=== PATIENT | female | born 1965 | race Two or more races ===

== ENCOUNTER 2021-09-02 02:31 | Emergency (ER) | payer SELFPAY ==
[~2021-09-02] VITALS: Ht 162.6 cm; Wt 57.8 kg
[2021-09-02] MEDS ORDERED: ONDANSETRON ODT 4 MG TAB PO ONE (03:15)
[2021-09-02 03:52] VITALS: BP 109/78
[2021-09-02] MEDS ORDERED: ONDANSETRON HCL 4 MG/2 ML VIAL IM ONE (04:15)
== END 2021-09-02 05:14 | disposition home or self-care (01) ==
LOC: ER 02:31
DX: K52.9 Noninfective gastroenteritis and colitis, unspecified (principal)
CPT/HCPCS: 96372; 99283; J2405; Q0162